=== PATIENT | male | born 1965 | race African-American/Black ===

== ENCOUNTER 2021-09-18 10:18 | Emergency (ER) | payer BC ==
[~2021-09-18] VITALS: Ht 167.6 cm; Wt 78.0 kg
[2021-09-18] MEDS ORDERED: ONDANSETRON HCL 4MG/2ML INJ IV STA (10:29)
[2021-09-18 11:17] LABS: HEMATOCRIT. 46.3 % (42.0-52.0); MEAN CORPUSCULAR HEMOGLOBIN 32.5 pg (28.0-32.0); MEAN PLATELET VOLUME 8.9 fl (7.4-10.4); PLATELET 158 x1000/uL (130-400); RED BLOOD CELL COUNT 4.63 mill/uL (4.7-6.1); RED CELL DISTRIBUTION WIDTH 13.8 % (11.6-14.6)
[2021-09-18 11:27] LABS: CHLORIDE 108 mEq/L (98-107)
[2021-09-18 11:35] LABS: ETHANOL BLOOD 59 mg/dL
[2021-09-18 12:17] LABS: PLATELET ESTIMATE NORMAL
[2021-09-18] MEDS ORDERED: SODIUM CHLORIDE 0.9% 1,000 ML IV ONE ×2 (12:45)
[2021-09-18] MEDS ORDERED: AMOXICILLIN/POTASSIUM CLAVULANATE 875/125MG TAB PO ONE (12:45)
[2021-09-18 12:52] LABS: CLARITY URINE CLEAR (CLEAR); COLOR URINE YELLOW (YELLOW); KETONES URINE 3+ (NEGATIVE); LEUKOCYTE ESTERASE URINE NEGATIVE (NEGATIVE); NITRITE URINE NEGATIVE (NEGATIVE); OCCULT BLOOD URINE TRACE (NEGATIVE); PROTEIN URINE TRACE (NEGATIVE); SPECIFIC GRAVITY URINE 1.016 (1.005-1.030)
[2021-09-18 13:14] LABS: *AMPHETAMINES SCREEN URINE NEGATIVE (NEGATIVE); *BARBITURATES SCREEN URINE NEGATIVE (NEGATIVE); *BENZODIAZEPINES SCREEN URINE NEGATIVE (NEGATIVE); *COCAINE SCREEN URINE NEGATIVE (NEGATIVE); CANNABINOID URINE SCREEN PRESUMTIVE POSITIVE (NEGATIVE); METHADONE URINE SCREEN NEGATIVE (NEGATIVE); OPIATES URINE SCREEN NEGATIVE (NEGATIVE); PHENCYCLIDINE URINE SCREEN NEGATIVE (NEGATIVE)
[2021-09-18 13:28] LABS: HEMATOCRIT. 41.9 % (42.0-52.0); HEMOGLOBIN. 13.9 g/dL (14.0-18.0); MEAN CORPUSCULAR HEMOGLOBIN 32.7 pg (28.0-32.0); MEAN CORPUSCULAR VOLUME 98.6 fL (80.0-94.0); MEAN PLATELET VOLUME 8.1 fl (7.4-10.4); PLATELET 140 x1000/uL (130-400); RED BLOOD CELL COUNT 4.25 mill/uL (4.7-6.1); RED CELL DISTRIBUTION WIDTH 13.8 % (11.6-14.6)
[2021-09-18] MEDS ORDERED: ONDA4TAB50 MT (13:52)
[2021-09-18] MEDS ORDERED: AMOX1TAB16 MT (13:52)
[2021-09-18 14:11] LABS: PLATELET ESTIMATE NORMAL
[2021-09-18 14:40] VITALS: BP 155/69
== END 2021-09-18 14:44 | disposition home or self-care (01) ==
LOC: ER 10:18
DX: J18.9 Pneumonia, unspecified organism (principal); T51.0X1A Toxic effect of ethanol, accidental (unintentional), initial encounter; Y92.89 Other specified places as the place of occurrence of the external cause; E78.00 Pure hypercholesterolemia, unspecified; I10 Essential (primary) hypertension
CPT/HCPCS: 36415; 71045; 80053; 80305; 80320; 81003; 82962; 83690; 85025; 93005; 96361; 96374; 99291; J2405; J7030; G0480

== ENCOUNTER 2022-08-29 19:39 | Emergency (ER) | payer SELFPAY ==
[~2022-08-29] VITALS: Ht 172.7 cm; Wt 72.1 kg
[~2022-08-29 19:39] MED LIST: AMOX1TAB16 MT; ONDA4TAB50 MT
[2022-08-29 19:47] VITALS: O2SAT 99
[2022-08-29] MEDS ORDERED: MORPHINE SULFATE 4 MG/ML CPJ (NOT FOR IM USE) IV STA (21:12)
[2022-08-29] MEDS ORDERED: FAMOTIDINE 20MG/2ML VIAL IV STA (21:12)
[2022-08-29] MEDS ORDERED: SODIUM CHLORIDE 0.9% 1,000 ML IV ONE (21:15)
[2022-08-29 21:25] LABS: BASOPHILS % 0.3 % (0.0-2.0); HEMATOCRIT. 44.8 % (42.0-52.0); HEMOGLOBIN. 15.4 g/dL (14.0-18.0); LYMPHOCYTES % 7.9 % (20.0-50.0); MEAN CORPUSCULAR VOLUME 98.8 fL (80.0-94.0); MEAN PLATELET VOLUME 9.1 fl (7.4-10.4); MONOCYTES % 7.5 % (2.0-8.0); NEUTROPHILS % 84.3 % (40.0-76.0); PLATELET 176 x1000/uL (130-400); RED BLOOD CELL COUNT 4.54 mill/uL (4.7-6.1); RED CELL DISTRIBUTION WIDTH 13.8 % (11.6-14.6)
[2022-08-29 21:33] LABS: CHLORIDE 101 mEq/L (98-107)
[2022-08-29 22:30] VITALS: TEMP 98.6
[2022-08-29 22:33] LABS: CLARITY URINE CLEAR (CLEAR); COLOR URINE YELLOW (YELLOW); KETONES URINE 3+ (NEGATIVE); LEUKOCYTE ESTERASE URINE NEGATIVE (NEGATIVE); NITRITE URINE NEGATIVE (NEGATIVE); OCCULT BLOOD URINE 2+ (NEGATIVE); PH URINE 5.5 (4.5-8.0); PROTEIN URINE 1+ (NEGATIVE); SPECIFIC GRAVITY URINE 1.024 (1.005-1.030)
[2022-08-30] MEDS ORDERED: FOLIC ACID 1 MG, THIAMINE HCL 100 MG, MVI, ADULT NO.1 10 ML in DEXTROSE 5% WATER 1,000 ML IV ONE ×4 (00:15)
[2022-08-30 01:00] VITALS: BP 157/96; PULSE 61; RESP 19
[2022-08-30] MEDS ORDERED: FAMO-135 MT (01:32)
== END 2022-08-30 03:55 | disposition home or self-care (01) ==
LOC: ER 19:39
DX: F10.10 Alcohol abuse, uncomplicated (principal); R11.2 Nausea with vomiting, unspecified; E78.00 Pure hypercholesterolemia, unspecified; Y90.9 Presence of alcohol in blood, level not specified
CPT/HCPCS: 99285; 96361; 71045; 96375; 80053; 81003; 83690; 85025; 36415; 93005; 96365; J3490 ×3; J2270; J7030; J3411; J7070